=== PATIENT | male | born 2000 | race Caucasian/White ===

== ENCOUNTER 2020-10-30 12:01 | Emergency (ER) | payer OTHER ==
[~2020-10-30] VITALS: Ht 165.1 cm; Wt 72.7 kg
[~2020-10-30 12:01] MED LIST: AMOXICILLIN875 MG PO; BACLOFEN10 MG; FERROUS SULFAT324 MG PO; NASONEX50 MCG/AC; NEO SYNEPHRI; TYLENOL & COD12.5 ML PO; baclofen PO
[2020-10-30 13:15] VITALS: BP 112/69
== END 2020-10-30 13:15 | disposition home or self-care (01) | DRG 866 ==
LOC: ED 12:01
DX: B34.9 Viral infection, unspecified (principal); G80.9 Cerebral palsy, unspecified; Z99.3 Dependence on wheelchair; Z20.822 Contact with and (suspected) exposure to COVID-19